=== PATIENT | female | born 1965 | race Two or more races ===

== ENCOUNTER 2016-09-17 16:14 | Emergency (ER) | payer BC ==
[~2016-09-17] VITALS: Ht 167.6 cm; Wt 81.2 kg
[2016-09-17 16:51] VITALS: BP 145/94
[2016-09-17] MEDS ORDERED: Morphine Sulfate 10mg/ml Inj IVP ONE ×2 (17:00→18:45)
[2016-09-17 17:51] LABS: BASOPHILS % (AUTO) 1.2 % (0.0-2.0); EOSINOPHILS % (AUTO) 2.7 % (0.0-3.0); LYMPHOCYTES % (AUTO) 38.3 % (20.0-45.0); MEAN CORPUSCULAR HGB CONC 32.9 G/DL (32.0-36.0); MEAN CORPUSCULAR VOLUME 94 FL (80-99); MEAN PLATELET VOLUME 6.6 FL (6.5-10.1); MONOCYTES % (AUTO) 3.6 % (1.0-10.0); NEUTROPHILS % (AUTO) 54.2 % (45.0-75.0); PLATELET COUNT 271 K/UL (150-450); RED BLOOD COUNT 4.58 M/UL (4.20-5.40); WHITE BLOOD COUNT 7.5 K/UL (4.8-10.8)
[2016-09-17 18:09] LABS: APPEARANCE,URINE CLEAR; KETONES,URINE NEGATIVE (NEGATIVE); LEUKOCYTE ESTERASE ,URINE NEGATIVE (NEGATIVE); NITRITE,URINE NEGATIVE (NEGATIVE); PH,URINE 8 (4.5-8.0); PROTEIN,URINE NEGATIVE (NEGATIVE); UROBILINOGEN,URINE NORMAL MG/DL (0.0-1.0)
[2016-09-17 18:16] LABS: ANION GAP 16 (5-15); CALCIUM 9.3 mg/dL (8.6-10.2); CARBON DIOXIDE 24 mEQ/L (20-30); CHLORIDE 100 mEQ/L (98-107); CREATININE 0.6 mg/dL (0.5-0.9); GLOMERULAR FILTRATION RATE > 60 mL/min (>60); HEMOLYSIS 3; POTASSIUM 3.6 mEQ/L (3.4-4.9); SODIUM 140 mEQ/L (135-145)
[2016-09-17] MEDS ORDERED: Ketorolac 30mg Inj IV ONE (19:15)
--- NOTE | 2016-09-17 19:15 | Emergency Room Report ---
History of Present Illness General Chief Complaint: General Complaint Source: Patient Present Illness HPI 51 YO female presents to the ED with progressive onset Left flank pain 10/10 in severity x 2 days. denies fevers or chills. denies trauma or fall. pt. was sent to ED by PCP to r/o stone or UTI. pt. has a hx of back pain however pain usually midline and in the lower back. Pt denies heavy lifting or strenuous activity. Pt. is restless and states there are no comfortable positions. Denies abdominal pain, hematuria, frequency, dysuria, nausea or vomiting. Denies cough , or recent illness. Denies recent spinal procedures or hx of neoplastic disease. Denies numbness tingling or loss of sensation or gross motor movements of the extremities, incontinence of bowel or bladder. Denies CP, Palpitations, LOC, AMS, dizziness, Changes in Vision, Sensation, paresthesias, or a sudden severe headache. Allergies: Coded Allergies: No Known Allergies (Unverified , 09/17/16) Patient History Past Medical History: see triage record Past Surgical History: none Pertinent Family History: none Last Menstrual Period: 2014 Now: No Reviewed Nursing Documentation: PMH: Agreed, PSxH: Agreed Nursing Documentation-PMH Past Medical History: No History, Except For Hx Cardiac Problems: Yes - irregular heart beat Hx Hypertension: Yes Review of Systems All Other Systems: negative except mentioned in HPI Physical Exam Vital Signs Date Time Temp Pulse Resp B/P Pulse Ox O2 Delivery O2 Flow Rate FiO2 09/17/16 16:38 97.7 79 20 145/94 99 09/17/16 16:51 Room Air Sp02 EP Interpretation: reviewed, normal General Appearance: no apparent distress, alert, GCS 15, non-toxic, moderate distress - inability to find a POC Head: normocephalic, atraumatic Eyes: bilateral eye PERRL, bilateral eye normal inspection ENT: hearing grossly normal, normal pharynx, no angioedema, normal voice Neck: full range of motion, supple/symm/no masses Respiratory: chest non-tender, lungs clear, normal breath sounds, speaking full sentences Cardiovascular #1: regular rate, rhythm, no edema Gastrointestinal: normal bowel sounds, non tender, soft, no guarding, no rebound Rectal: deferred Genitourinary: normal inspection, CVA tenderness (L) Musculoskeletal: back normal, gait/station normal, normal range of motion, no calf tenderness, tender - left thoracic paraspinal tenderness to deep palpation and CVA, no midline spinous tenderness, no obvious deformity noted, no erythema Neurologic: alert, oriented x3, responsive, motor strength/tone normal, sensory intact, speech normal Psychiatric: judgement/insight normal, memory normal, mood/affect normal, no suicidal/homicidal ideation, other - Pt is restless, and prefers standing. pt noted to be moving around in attempts to find a POC. Reflexes: 4+ bicep (R), 4+ bicep (L), 4+ tricep (R), 4+ tricep (L), 4+ knee (R) , 4+ knee (L) Skin: normal color, no rash, warm/dry, well hydrated Lymphatic: no adenopathy Medical Decision Making PA Attestation Dr. Napier is my supervising Physician whom patient management has been discussed with. Diagnostic Impression: Primary Impression: Back pain Qualified Codes: M54.5 - Low back pain Additional Impressions: Lt flank pain Muscle strain ER Course Pt. presents to the ED c/o Left flank pain 10/10 in severity, denies fevers or chills. Ddx considered but are not limited to Diverticulitis, acute appy, diarrhea,UC, PUD, GE, pancreatitis, gallstone, kidney stone, pyelonephritis, UTI, obstruction. Vital signs: are WNL, pt. is afebrile H&PE are most consistent with possible renal stone, or muscular injury. I feel this pt. is highly complex requiring multiple diagnostic modalities in addition to administration of strong opiate medications to control pain. ORDERS: -CBC, CMP, lipase: are Unremarkable/ WNL - UA: Unremarkable / WNL no evidence of infection or indication of stone. - CT abdomen and pelvis no contrast: No Evidence of stone or hydronephrosis, degenerative changes noted per preliminary radiology report ED INTERVENTIONS: -- 1000NS --8mg Morphine for pain -- Pt. re-evaluation: pt. appears more comfortable , finally in a POC, states pain is still felt, however minimal. -30mg Toradol IVP -D/W pt. the results of her imaging and laboratory studies. In addition to treatment plan and follow up with PCP. DISCHARGE: At this time pt. is stable for d/c to home. Will provide printed patient care instructions, and any necessary prescriptions. Care plan and follow up instructions have been discussed with the patient prior to discharge. Labs Test 09/17/16 17:40 White Blood Count 7.5 K/UL (4.8-10.8) Red Blood Count 4.58 M/UL (4.20-5.40) Hemoglobin 14.2 G/DL (12.0-16.0) Hematocrit 43.2 % (37.0-47.0) Mean Corpuscular Volume 94 FL (80-99) Mean Corpuscular Hemoglobin 31.0 PG (27.0-31.0) Mean Corpuscular Hemoglobin Concent 32.9 G/DL (32.0-36.0) Red Cell Distribution Width 13.0 % (11.6-14.8) Platelet Count 271 K/UL (150-450) Mean Platelet Volume 6.6 FL (6.5-10.1) Neutrophils (%) (Auto) 54.2 % (45.0-75.0) Lymphocytes (%) (Auto) 38.3 % (20.0-45.0) Monocytes (%) (Auto) 3.6 % (1.0-10.0) Eosinophils (%) (Auto) 2.7 % (0.0-3.0) Basophils (%) (Auto) 1.2 % (0.0-2.0) Urine Color Pale yellow Urine Appearance Clear Urine pH 8 (4.5-8.0) Urine Specific [place] 1.010 (1.005-1.035) Urine Protein Negative (NEGATIVE) Urine Glucose (UA) Negative (NEGATIVE) Urine Ketones Negative (NEGATIVE) Urine Occult Blood Negative (NEGATIVE) Urine Nitrite Negative (NEGATIVE) Urine Bilirubin Negative (NEGATIVE) Urine Urobilinogen Normal MG/DL (0.0-1.0) Urine Leukocyte Esterase Negative (NEGATIVE) Sodium Level 140 mEQ/L (135-145) Potassium Level 3.6 mEQ/L (3.4-4.9) Chloride Level 100 mEQ/L (98-107) Carbon Dioxide Level 24 mEQ/L (20-30) Anion Gap 16 (5-15) Blood Urea Nitrogen 11 mg/dL (7-23) Creatinine 0.6 mg/dL (0.5-0.9) Estimat Glomerular Filtration Rate > 60 mL/min (>60) Glucose Level 96 mg/dL (74-106) Calcium Level 9.3 mg/dL (8.6-10.2) Last Vital Signs Date Time Temp Pulse Resp B/P Pulse Ox O2 Delivery O2 Flow Rate FiO2 09/17/16 16:51 97.7 98 20 145/94 99 Room Air Disposition: HOME, SELF-CARE Condition: Stable Scripts Hydrocodone Bit/Acetaminophen 5-325* (NORCO 5-325*) 1 Each Tablet 1 TAB ORAL Q6H Y for For Pain, #10 TAB 0 Refills Prov: Mari Leung 09/17/16 Baclofen* (BACLOFEN*) 10 Mg Tablet 10 MG ORAL THREE TIMES A DAY, #20 TAB Prov: Mari Leung 09/17/16 Ibuprofen* (MOTRIN*) 600 Mg Tablet 600 MG ORAL THREE TIMES A DAY, #30 TAB 0 Refills Prov: Mari Leung 09/17/16 Referrals: NON PHYSICIAN (PCP) Patient Instructions: Back Pain, Adult, [id number] Additional Instructions: Take medications as directed. Follow up with PCP in 3 days Return sooner to ED if new symptoms occur, or current symptoms become worse. Do not drink alcohol, drive, or operate heavy machinery while taking Muscle relaxer as this may cause drowsiness. Mari Leung Sep 17, 2016 19:15
[2016-09-17] MEDS ORDERED: IBUPROFEN600 MG ORAL (19:16)
[2016-09-17] MEDS ORDERED: BACLOFEN10 MG ORAL (19:16)
[2016-09-17] MEDS ORDERED: NORCO 5-325 TA1 EACH ORAL (19:49)
[2016-09-17 20:27] VITALS: BP 137/85
--- NOTE | 2016-09-18 09:17 | Diagnostic Imaging Report ---
Indication: Abdominal pain Technique: Continuous helical transaxial imaging of the abdomen and pelvis was obtained from the lung bases to the pubic symphysis. No intravenous contrast was administered. Coronal 2-D reformats were also obtained. Total Dose length Product (DLP): [address] Dose Index Volume (CTDIvol): 15 mGy Comparison: none Findings: The lung bases are clear. Solid organ evaluation is limited as always without IV contrast. There is no nephrolithiasis or hydronephrosis seen. There is irregularity and some distortion of the fascia between the rectus muscles. Query possible prior surgery. The rectus muscles appear heterogeneous with some areas of fatty infiltration. This does not have a distinct pattern but is somewhat randomly present bilaterally. There is a small umbilical hernia containing fat noted. Some thickening of the skin and subcutaneous reticulation are noted in and around the area of the umbilicus. Findings are nonspecific but could be due to prior surgery. This there is no evidence of intra-abdominal abscess, free fluid, free air. Calcifications are noted within the uterus. These are probably related to small fibroids. The appendix is not seen. There is no evidence of bowel obstruction. Gallbladder is unremarkable. Impression: No acute findings appreciated within the abdomen and pelvis. Some irregularity involving the anterior abdominal wall nature which is not known. Small umbilical hernia is present. Query possibility of prior surgery. The CT scanner at [facility] is accredited by the [employer] and the scans are performed using protocols designed to limit radiation exposure to as low as reasonably achievable to attain images of sufficient resolution adequate for diagnostic evaluation.
== END 2016-09-17 20:30 | disposition home or self-care (01) ==
LOC: EMR 18:43
DX: S39.011A Strain of muscle, fascia and tendon of abdomen, initial encounter (principal); S39.012A Strain of muscle, fascia and tendon of lower back, initial encounter; X58.XXXA Exposure to other specified factors, initial encounter; Y92.9 Unspecified place or not applicable; I10 Essential (primary) hypertension
CPT/HCPCS: 36415; 74176; 80048; 81003; 85025; 96374; 96375; 99284; J1885; J2270